=== PATIENT | male | born 1995 | race African-American/Black ===

== ENCOUNTER 2017-07-16 17:26 | Emergency (ER) | payer SELFPAY ==
[~2017-07-16] VITALS: Ht 170.2 cm; Wt 61.4 kg
[2017-07-16 17:28] VITALS: BP 143/95; PULSE 103; RESP 14; TEMP 99; O2SAT 98
--- NOTE | 2017-07-16 18:11 | RADRPT ---
EXAM DATE/TIME: 07/16/2017 18:04 [facility] COMPARISON: No previous studies available for comparison. INDICATIONS : Chest pain. MEDICAL HISTORY : None. SURGICAL HISTORY : None. ENCOUNTER: Initial ACUITY: 1 day PAIN SCORE: 8/10 LOCATION: Bilateral FINDINGS: PA and lateral views of the chest demonstrate the lungs to be symmetrically aerated without evidence of mass, infiltrate or effusion. The cardiomediastinal contours are unremarkable. Osseous structure s are intact. CONCLUSION: No acute cardiopulmonary process. Ramses Gomez MD on July 16, 2017 at 18:09 Board Certified Radiologist. This report was verified electronically.
[2017-07-16 18:26] LABS: AUTOMATED NEUTROPHIL # 5.6 TH/MM3 (1.8-7.7); BASOPHIL % 0.2 % (0.0-2.0); HEMATOCRIT 44.8 % (39.0-51.0); HEMOGLOBIN 15.5 GM/DL (13.0-17.0); LYMPH % 15.4 % (9.0-44.0); LYMPHOCYTE # 1.2 TH/MM3 (1.0-4.8); MEAN CELL VOLUME 82.6 FL (80.0-100.0); MEAN CORPUSCULAR HEMOGLOBIN 28.6 PG (27.0-34.0); MEAN CORPUSCULAR HGB CONC 34.7 % (32.0-36.0); MEAN PLATELET VOLUME 8.8 FL (7.0-11.0); MONO % 10.6 % (0.0-8.0); MONOCYTE # 0.8 TH/MM3 (0-0.9); NEUT % 73.8 % (16.0-70.0); PLATELET COUNT 254 TH/MM3 (150-450); RED BLOOD COUNT 5.42 MIL/MM3 (4.50-5.90); RED CELL DISTRIBUTION WIDTH 13.1 % (11.6-17.2); WHITE BLOOD COUNT 7.6 TH/MM3 (4.0-11.0)
[2017-07-16 18:50] LABS: INTERNATIONAL NORMALIZED RATIO 1.1 RATIO; PROTHROMBIN TIME - PATIENT 11.2 SEC (9.8-11.6)
[2017-07-16 18:54] LABS: BICARBONATE 29.8 MEQ/L (21.0-32.0); BLOOD UREA NITROGEN 12 MG/DL (7-18); CALCIUM 9.2 MG/DL (8.5-10.1); CHLORIDE 99 MEQ/L (98-107); CREATININE 1.06 MG/DL (0.60-1.30); GLOMERULAR FILTRATION RATE 88 ML/MIN (>89); GLUCOSE,RANDOM 115 MG/DL (74-106); MAGNESIUM 2.2 MG/DL (1.5-2.5); SODIUM (NA) 135 MEQ/L (136-145)
[2017-07-16 18:58] LABS: TROPONIN I LESS THAN 0.02 NG/ML (0.02-0.05)
--- NOTE | 2017-07-16 19:42 | PD ---
HPI Chief Complaint: Chest Pain Time Seen by Provider: 19:41 Travel History International Travel<30 days: No Contact w/Intl Traveler<30days: No Traveled to known affect area: No History of Present Illness HPI 21-year-old male presents to emergency department for evaluation. Patient states since 2 AM this morning he has been having substernal chest pain. It has been migraine proximal and distally and he is having some epigastric pain. States that when he lays back it is worse in migrates to his back. Rates the pain 6/10. He did vomit once. Denies hemoptysis. Denies any fever or chills. He has been having normal bowel movements and voids. states he does have a cardiac valve history but is uncertain which one and has not followed up with cardiology. Nights any history of PE or DVT. No recent travel. Denies any recent illnesses. Denies illicit drug use. Denies any other symptoms at this time. PFSH Past Medical History Medical History: Denies Significant Hx Social History Alcohol Use: No Tobacco Use: No Substance Use: No Allergies-Medications (Allergen,Severity, Reaction): Coded Allergies: No Known Allergies (Unverified , 07/16/17) Reported Meds & Prescriptions Reported Meds & Active Scripts Active Omeprazole 40 Mg Cap 40 Mg PO DAILY 7 Days Review of Systems Except as stated in HPI: all other systems reviewed are Neg Physical Exam Narrative GENERAL: Well-nourished male patient in no acute distress. SKIN: Focused skin assessment warm/dry. HEAD: Atraumatic. Normocephalic. EYES: Pupils equal and round. No scleral icterus. No injection or drainage. ENT: No nasal bleeding or discharge. Mucous membranes pink and moist. NECK: Trachea midline. No JVD. CARDIOVASCULAR: Tachycardic rate and rhythm. No murmur appreciated. RESPIRATORY: No accessory muscle use. Clear to auscultation. Breath sounds equal bilaterally. GASTROINTESTINAL: Abdomen soft, nondistended. Epigastric tenderness to palpation with mild guarding. No rebound tenderness.. Hepatic and splenic margins not palpable. MUSCULOSKELETAL: No obvious deformities. No clubbing. No cyanosis. No edema. NEUROLOGICAL: Awake and alert. No obvious cranial nerve deficits. Motor grossly within normal limits. Normal speech. PSYCHIATRIC: Appropriate mood and affect; insight and judgment normal. Data Data Last Documented VS Vital Signs Date Time Temp Pulse Resp B/P (MAP) Pulse Ox O2 Delivery O2 Flow Rate FiO2 07/16/17 22:37 100.1 07/16/17 22:19 111 16 153/98 (116) 99 07/16/17 20:10 Room Air Orders Orders Electrocardiogram (07/16/17 17:34) Basic Metabolic Panel (Bmp) (07/16/17 17:34) Ckmb (Isoenzyme) Profile (07/16/17 17:34) Complete Blood Count With Diff (07/16/17 17:34) Magnesium (Mg) (07/16/17 17:34) Prothrombin Time / Inr (Pt) (07/16/17 17:34) Act Partial Throm Time (Ptt) (07/16/17 17:34) Troponin I (07/16/17 17:34) Chest, Pa & Lat (07/16/17 17:34) CKMB (07/16/17 17:45) CKMB% (07/16/17 17:45) Iv Access Insert/Monitor (07/16/17 19:45) Ecg Monitoring (07/16/17 19:45) Oximetry (07/16/17 19:45) Sodium Chloride 0.9% Flush (Ns Flush) (07/16/17 19:45) Al-Mag Hy-Si 40-40-4 Mg/Ml Liq (Mag-Al P (07/16/17 19:45) Lidocaine 2% Viscous (Xylocaine 2% Visco (07/16/17 19:45) Ct Pulmonary Angiogram (07/16/17 ) Iohexol 350 Inj (Omnipaque 350 Inj) (07/16/17 21:04) Sodium Chlor 0.9% 1000 Ml Inj (Ns 1000 M (07/16/17 21:30) Ketorolac Inj (Toradol Inj) (07/16/17 21:45) Influenzae A/B Antigen (07/16/17 22:35) Acetaminophen (Tylenol) (07/16/17 22:45) Sodium Chlor 0.9% 1000 Ml Inj (Ns 1000 M (07/16/17 23:00) Ed Discharge Order (07/16/17 23:33) Labs Laboratory Tests Test 07/16/17 17:45 White Blood Count 7.6 TH/MM3 Red Blood Count 5.42 MIL/MM3 Hemoglobin 15.5 GM/DL Hematocrit 44.8 % Mean Corpuscular Volume 82.6 FL Mean Corpuscular Hemoglobin 28.6 PG Mean Corpuscular Hemoglobin Concent 34.7 % Red Cell Distribution Width 13.1 % Platelet Count 254 TH/MM3 Mean Platelet Volume 8.8 FL Neutrophils (%) (Auto) 73.8 % Lymphocytes (%) (Auto) 15.4 % Monocytes (%) (Auto) 10.6 % Eosinophils (%) (Auto) 0.0 % Basophils (%) (Auto) 0.2 % Neutrophils # (Auto) 5.6 TH/MM3 Lymphocytes # (Auto) 1.2 TH/MM3 Monocytes # (Auto) 0.8 TH/MM3 Eosinophils # (Auto) 0.0 TH/MM3 Basophils # (Auto) 0.0 TH/MM3 CBC Comment DIFF FINAL Differential Comment Prothrombin Time 11.2 SEC Prothromb Time International Ratio 1.1 RATIO Activated Partial Thromboplast Time 21.6 SEC Blood Urea Nitrogen 12 MG/DL Creatinine 1.06 MG/DL Random Glucose 115 MG/DL Calcium Level 9.2 MG/DL Magnesium Level 2.2 MG/DL Sodium Level 135 MEQ/L Potassium Level 3.3 MEQ/L Chloride Level 99 MEQ/L Carbon Dioxide Level 29.8 MEQ/L Anion Gap 6 MEQ/L Estimat Glomerular Filtration Rate 88 ML/MIN Total Creatine Kinase 182 U/L Creatine Kinase MB LESS THAN 0.5 NG/ML Troponin I LESS THAN 0.02 NG/ML MDM Medical Decision Making Medical Screen Exam Complete: Yes Emergency Medical Condition: Yes Medical Record Reviewed: Yes Differential Diagnosis Indigestion versus influenza versus viral syndrome versus gastritis versus gastroenteritis versus chest wall pain versus pleuritic pain Narrative Course 21-year-old male presents to emergency department for evaluation. EKG is completely out in triage and reviewed by my attending with no acute abnormality. Patient does have epigastric tenderness to palpation. After GI cocktail, his pain has nearly resolved however he states he still feels poorly. Patient remains tachycardic with an increasing heart rate. I discussed the patient with my attending physician. She recommends moving forward with CT pulmonary angiogram for further evaluation of possible PE. This is complete and reveals no pulmonary embolus. Patient is given additional pain control. He is given 2 L normal saline IV fluid. Upon reassessment, his heart rate has normalized to the 90s and he reports feeling much better. Patient is encouraged to follow-up with primary care provider. He agrees to return immediately with any acute worsening symptoms. Diagnosis Primary Impression: Viral syndrome Additional Impressions: Acute gastritis Qualified Codes: K29.00 - Acute gastritis without bleeding Chest wall pain Referrals: Primary Care Physician Patient Instructions: General Instructions, Viral Syndrome (ED) Departure Forms: Tests/Procedures, Work Release Enter return to work date: Jul 18, 2017 Additional Instructions: Rest Maintain adequate oral hydration Follow-up with a primary care provider Tylenol or ibuprofen instructed on the package as needed for pain Return immediately with any acute worsening of symptoms Med/Other Pt SpecificInfo: Prescription(s) given Scripts Omeprazole (Omeprazole) 40 Mg Cap 40 MG PO DAILY for 7 Days, #7 CAP 0 Refills Prov: Lelia Navas 07/16/17 Disposition: 01 DISCHARGE HOME Condition: Stable Lelia Navas Jul 16, 2017 19:42
[2017-07-16] MEDS ORDERED: LIDOCAINE VISCOUS 2% SOLN 15 ML UDC PO ONE (19:45)
[2017-07-16] MEDS ORDERED: SODIUM CHLORIDE 0.9% FLUSH 10 ML FLUSH IV FLUSH PRN (19:45)
[2017-07-16] MEDS ORDERED: ALUMINUM/MAGNESIUM/SIMETH 30 ML CUP PO ONE (19:45)
[2017-07-16 20:09] VITALS: BP 142/91; PULSE 101; RESP 16; O2SAT 99
[2017-07-16 20:10] VITALS: RESP 16; O2SAT 99
[2017-07-16] MEDS ORDERED: IOHEXOL 350 MG/ML 10 ML VIAL (for RAD DIAG) IVCONTRAST ONE (21:04)
--- NOTE | 2017-07-16 21:29 | RADRPT ---
EXAM DATE/TIME: 07/16/2017 20:57 [facility] COMPARISON: No previous studies available for comparison. INDICATIONS : Mid-sternal chest pain. IV CONTRAST: 65 cc Omnipaque 350 (iohexol) IV RADIATION DOSE: 9.11 CTDIvol (mGy) MEDICAL HISTORY : Hypertension. SURGICAL HISTORY : None. ENCOUNTER: Initial ACUITY: 1 day PAIN SCALE: 8/10 LOCATION: chest TECHNIQUE: Volumetric scanning of the chest was performed using a pulmonary embolism protocol MIP images were re constructed. Using automated exposure control and adjustment of the mA and/or kV according to patien t size, radiation dose was kept as low as reasonably achievable to obtain optimal diagnostic quality images. DICOM format image data is available electronically for review and comparison. Follow-up recommendations for detected pulmonary nodules are based at a minimum on nodule size and pa tient risk factors according to Fleischner Society Guidelines. FINDINGS: PULMONARY ARTERIES: No filling defects are seen in the pulmonary arteries through the segmental level. LUNGS: There is no consolidation or pneumothorax . No concerning pulmonary nodule is visualized. PLEURAE: There is no pleural thickening or pleural effusion. MEDIASTINUM: There is good visualization of the great vessels of the middle mediastinum. No evidence of mediastin al or hilar adenopathy/mass. MUSCULOSKELETAL: Within normal limits for patient age. MISCELLANEOUS: The visualized upper abdominal organs demonstrate no acute abnormality. CONCLUSION: 1. Negative for pulmonary embolus. No acute findings. Cameron Cruz MD on July 16, 2017 at 21:26 Board Certified Radiologist. This report was verified electronically.
[2017-07-16] MEDS ORDERED: SODIUM CHLOR 0.9% 1000 ML INJ 1,000 ML IV ONE ×2 (21:30→23:00)
[2017-07-16] MEDS ORDERED: KETOROLAC TROMETHAMINE 30 MG/ML (IVP) VIAL IV PUSH ONE (21:45)
[2017-07-16 22:19] VITALS: BP 153/98; PULSE 111; RESP 16; O2SAT 99
[2017-07-16 22:37] VITALS: TEMP 100.1
--- NOTE | 2017-07-16 22:37 | PD ---
Physical Exam Narrative I, Dr. Ch, have reviewed the advance practice practitioner's documentation and am in agreement, met with the patient face to face, made the diagnosis, and the medical decision making was done by me. *My assessment and Findings: Atypical chest pain vs. pericarditis vs. PE vs. pneumonia 21yo M with midsternal chest pain that is worst with deep breathing. Had some nausea and vomiting. Denies any fever, sob. Had some abdominal pain that resolved. Labs reviewed, no leukocytosis. H/H normal. Troponin negative. CXR negative. CT angio negative for PE. Pt felt warm so repeat temp was ordered and it was 100.1F. Pt given acetaminophen. Pt is mildly tachycardic and receiving NS IVF. Abdomen is soft, NT/ND. Lungs are clear. HR improved after NS IVF x2 and he feels better. Influenza negative. Return precautions given. Data Data Last Documented VS Vital Signs Date Time Temp Pulse Resp B/P (MAP) Pulse Ox O2 Delivery O2 Flow Rate FiO2 07/16/17 22:37 100.1 07/16/17 22:19 111 16 153/98 (116) 99 07/16/17 20:10 Room Air Orders Orders Electrocardiogram (07/16/17 17:34) Basic Metabolic Panel (Bmp) (07/16/17 17:34) Ckmb (Isoenzyme) Profile (07/16/17 17:34) Complete Blood Count With Diff (07/16/17 17:34) Magnesium (Mg) (07/16/17 17:34) Prothrombin Time / Inr (Pt) (07/16/17 17:34) Act Partial Throm Time (Ptt) (07/16/17 17:34) Troponin I (07/16/17 17:34) Chest, Pa & Lat (07/16/17 17:34) CKMB (07/16/17 17:45) CKMB% (07/16/17 17:45) Iv Access Insert/Monitor (07/16/17 19:45) Ecg Monitoring (07/16/17 19:45) Oximetry (07/16/17 19:45) Sodium Chloride 0.9% Flush (Ns Flush) (07/16/17 19:45) Al-Mag Hy-Si 40-40-4 Mg/Ml Liq (Mag-Al P (07/16/17 19:45) Lidocaine 2% Viscous (Xylocaine 2% Visco (07/16/17 19:45) Ct Pulmonary Angiogram (07/16/17 ) Iohexol 350 Inj (Omnipaque 350 Inj) (07/16/17 21:04) Sodium Chlor 0.9% 1000 Ml Inj (Ns 1000 M (07/16/17 21:30) Ketorolac Inj (Toradol Inj) (07/16/17 21:45) Influenzae A/B Antigen (07/16/17 22:35) Acetaminophen (Tylenol) (07/16/17 22:45) Sodium Chlor 0.9% 1000 Ml Inj (Ns 1000 M (07/16/17 23:00) Ed Discharge Order (07/16/17 23:33) Labs Laboratory Tests Test 07/16/17 17:45 White Blood Count 7.6 TH/MM3 Red Blood Count 5.42 MIL/MM3 Hemoglobin 15.5 GM/DL Hematocrit 44.8 % Mean Corpuscular Volume 82.6 FL Mean Corpuscular Hemoglobin 28.6 PG Mean Corpuscular Hemoglobin Concent 34.7 % Red Cell Distribution Width 13.1 % Platelet Count 254 TH/MM3 Mean Platelet Volume 8.8 FL Neutrophils (%) (Auto) 73.8 % Lymphocytes (%) (Auto) 15.4 % Monocytes (%) (Auto) 10.6 % Eosinophils (%) (Auto) 0.0 % Basophils (%) (Auto) 0.2 % Neutrophils # (Auto) 5.6 TH/MM3 Lymphocytes # (Auto) 1.2 TH/MM3 Monocytes # (Auto) 0.8 TH/MM3 Eosinophils # (Auto) 0.0 TH/MM3 Basophils # (Auto) 0.0 TH/MM3 CBC Comment DIFF FINAL Differential Comment Prothrombin Time 11.2 SEC Prothromb Time International Ratio 1.1 RATIO Activated Partial Thromboplast Time 21.6 SEC Blood Urea Nitrogen 12 MG/DL Creatinine 1.06 MG/DL Random Glucose 115 MG/DL Calcium Level 9.2 MG/DL Magnesium Level 2.2 MG/DL Sodium Level 135 MEQ/L Potassium Level 3.3 MEQ/L Chloride Level 99 MEQ/L Carbon Dioxide Level 29.8 MEQ/L Anion Gap 6 MEQ/L Estimat Glomerular Filtration Rate 88 ML/MIN Total Creatine Kinase 182 U/L Creatine Kinase MB LESS THAN 0.5 NG/ML Troponin I LESS THAN 0.02 NG/ML [facility] Supervised Visit with MARILU: Yes Interpretation(s) EKG: NSR 94bpm. Normal axis. No ST segment elevation or depression. Diagnosis Primary Impression: Viral syndrome Scripts Omeprazole (Omeprazole) 40 Mg Cap 40 MG PO DAILY for 7 Days, #7 CAP 0 Refills Prov: Lleia Navas 07/16/17 Kelly Ch DO Jul 16, 2017 22:37
[2017-07-16] MEDS ORDERED: ACETAMINOPHEN 325 MG TAB PO ONE (22:45)
[2017-07-16] MEDS ORDERED: OMEP40CA2 PO (23:35)
--- NOTE | 2017-07-17 00:33 | EKG ---
Date Performed: 07/16/2017 Time Performed: 17:40:11 PTAGE: 21 years EKG: Sinus rhythm POSSIBLE LEFT ATRIAL ENLARGEMENT POSSIBLE LEFT VENTRICULAR HYPERTROPHY ABNORMAL ECG INTERPRETATION B ASED ON A DEFAULT AGE OF 40 YEARS NO PREVIOUS TRACING DOCTOR: Claudio Valente Interpretating Date/Time 07/17/2017 00:31:35
== END 2017-07-16 23:52 | disposition home or self-care (01) ==
LOC: NEPD 17:26
DX: B34.9 Viral infection, unspecified (principal); R00.0 Tachycardia, unspecified; K29.00 Acute gastritis without bleeding; R94.31 Abnormal electrocardiogram [ECG] [EKG]; Z79.899 Other long term (current) drug therapy
CPT/HCPCS: 71046; 71275; 80048; 82550; 82552; 83735; 84484; 85025; 85610; 85730; 87804; 93005; 96361; 96374; 99285; J1885; J7030; Q9967